=== PATIENT | male | born 1940 | race Caucasian/White ===

== ENCOUNTER → 2017-01-12 | Outpatient (CLI) | payer MEDICARE, BC | LOC: US 13:30 | DX: N18.9 Chronic kidney disease, unspecified (principal); N26.1 Atrophy of kidney (terminal) ==

== ENCOUNTER → 2020-11-05 | Outpatient (CLI) | payer MEDICARE, BC ==
[~2020-11-05] MED LIST: ATORVASTATIN CA40 MG PO; CALCIUM500 MG PO; CLARITIN10 MG PO; CYANOCOBAL1000 MCG/1 INJ; FEOSOL325 MG PO; FLOMAX0.4 MG PO; FLONASE 0.05% N16 GM; MIRAPEX0.5 MG PO; OXYBUTYNIN CHLO10 MG PO; PROSCAR5 MG PO; VITAMIN D PO; ZINC50 M1 PO
[2020-11-05 09:53] LABS: HEMOGLOBIN 13.5 gm/dl (14.0-17.5); RED BLOOD COUNT 4.74 M/UL (4.20-5.50); WHITE BLOOD COUNT 6.4 K/UL (4.5-11.0)
[2020-11-05 10:19] LABS: BUN/CREATININE RATIO 14 (0-10)
== END ==
LOC: LAB 09:26
PROVIDERS: Nurse Practitioner Family
DX: N18.9 Chronic kidney disease, unspecified (principal); E78.5 Hyperlipidemia, unspecified; E03.9 Hypothyroidism, unspecified; E55.9 Vitamin D deficiency, unspecified; E53.8 Deficiency of other specified B group vitamins
CPT/HCPCS: 36415; 80053; 80061; 82570; 82607; 84156; 84439; 84443; 85025

== ENCOUNTER → 2021-05-06 | Outpatient (CLI) | payer MEDICARE, BC ==
[2021-05-06 13:01] LABS: HEMOGLOBIN 12.5 gm/dl (14.0-17.5); RED BLOOD COUNT 4.3 M/UL (4.20-5.50); WHITE BLOOD COUNT 6.3 K/UL (4.5-11.0)
[2021-05-06 13:28] LABS: BUN/CREATININE RATIO 10 (0-10)
[2021-05-07 08:14] LABS: PROSTATE SPECIFIC AG, SERUM 0.2 ng/mL (0.0-4.0); VITAMIN D, 25-HYDROXY 43.7 ng/mL (30.0-100.0)
== END ==
LOC: LAB 09:32
PROVIDERS: Nurse Practitioner Family
DX: E78.5 Hyperlipidemia, unspecified (principal); E03.9 Hypothyroidism, unspecified; E53.8 Deficiency of other specified B group vitamins; E55.9 Vitamin D deficiency, unspecified; N40.0 Benign prostatic hyperplasia without lower urinary tract symptoms
CPT/HCPCS: 36415; 80053; 80061; 82570; 82607; 84153; 84156; 84439; 84443; 85025

== ENCOUNTER → 2021-05-20 | Outpatient (CLI) | payer MEDICARE, BC ==
[2021-05-20 11:07] LABS: BUN/CREATININE RATIO 10 (0-10)
== END ==
LOC: LAB 08:18
PROVIDERS: Nurse Practitioner Family
DX: E87.6 Hypokalemia (principal)
CPT/HCPCS: 36415; 80048

== ENCOUNTER → 2021-11-04 | Outpatient (CLI) | payer MEDICARE, BC ==
[2021-11-04 08:49] LABS: HEMOGLOBIN 13.3 gm/dl (14.0-17.5); RED BLOOD COUNT 4.72 M/UL (4.20-5.50); WHITE BLOOD COUNT 6.8 K/UL (4.5-11.0)
[2021-11-05 07:12] LABS: ALKALINE PHOSPHATASE, S 99 IU/L (44-121); ALT (SGPT) 13 IU/L (0-44); AST (SGOT) 16 IU/L (0-40); BILIRUBIN, TOTAL 0.4 mg/dL (0.0-1.2); BUN 13 mg/dL (8-27); BUN/CREATININE RATIO 11 (10-24); CALCIUM, SERUM 9.7 mg/dL (8.6-10.2); CARBON DIOXIDE, TOTAL 24 mmol/L (20-29); CHLORIDE, SERUM 105 mmol/L (96-106); CHOLESTEROL, TOTAL 133 mg/dL (100-199); CREATININE, SERUM 1.16 mg/dL (0.76-1.27); EGFR IF AFRICN AM 69 (>59); EGFR IF NONAFRICN AM 60 (>59); GLOBULIN, TOTAL 2.1 g/dL (1.5-4.5); GLUCOSE, SERUM 96 mg/dL (65-99); HDL CHOLESTEROL 46 mg/dL (>39); LDL CHOLESTEROL CALC 60 mg/dL (0-99); LDL/HDL RATIO 1.3 ratio (0.0-3.6); POTASSIUM, SERUM 4.1 mmol/L (3.5-5.2); PROTEIN, TOTAL, SERUM 6.4 g/dL (6.0-8.5); SODIUM, SERUM 143 mmol/L (134-144); T. CHOL/HDL RATIO 2.9 ratio (0.0-5.0); TRIGLYCERIDES 156 mg/dL (0-149)
[2021-11-05 08:14] LABS: VITAMIN D, 25-HYDROXY 38.7 ng/mL (30.0-100.0)
== END ==
LOC: LAB 08:20
PROVIDERS: Nurse Practitioner Family
DX: N18.9 Chronic kidney disease, unspecified (principal); E78.5 Hyperlipidemia, unspecified; E03.9 Hypothyroidism, unspecified; E53.8 Deficiency of other specified B group vitamins; E55.9 Vitamin D deficiency, unspecified
CPT/HCPCS: 36415; 80053; 80061; 82607; 84439; 84443; 85025

== ENCOUNTER → 2022-05-25 | Outpatient (CLI) | payer MEDICARE, BC ==
[2022-05-25 09:12] LABS: HEMOGLOBIN 12.6 gm/dl (14.0-17.5); RED BLOOD COUNT 4.41 M/UL (4.20-5.50); WHITE BLOOD COUNT 6.2 K/UL (4.5-11.0)
[2022-05-25 12:13] LABS: BUN/CREATININE RATIO 13 (0-10)
[2022-05-26 08:19] LABS: VITAMIN D, 25-HYDROXY 52.5 ng/mL (30.0-100.0)
[2022-05-26 10:12] LABS: PROSTATE SPECIFIC AG, SERUM 0.1 ng/mL (0.0-4.0)
== END ==
LOC: LAB 08:50
PROVIDERS: Nurse Practitioner Family
DX: Z12.5 Encounter for screening for malignant neoplasm of prostate (principal); N40.0 Benign prostatic hyperplasia without lower urinary tract symptoms; E78.5 Hyperlipidemia, unspecified; E03.9 Hypothyroidism, unspecified; E53.8 Deficiency of other specified B group vitamins; E55.9 Vitamin D deficiency, unspecified; J30.9 Allergic rhinitis, unspecified
CPT/HCPCS: 36415; 80053; 80061; 82607; 84153; 84439; 84443; 85025